=== PATIENT | female | born 1960 | race Caucasian/White ===

== ENCOUNTER 2016-08-14 16:14 | Emergency (ER) | payer SELFPAY ==
--- NOTE | 2016-08-14 16:35 | ER Document Report ---
ED Medical Screen (RME) - General Stated Complaint: POSSIBLE BURN Time seen by provider: 16:32 Mode of Arrival: Ambulatory Information source: Patient Notes: 55-year-old female presents to ED for a burn from a sleeping on a heating pad 5 nights ago. She states she and her daughter have been monitoring the burn and the daughter told her that it was getting more red so she became concerned and came to the emergency room. I have greeted and performed a rapid initial assessment of this patient. A comprehensive ED assessment and evaluation of the patient, analysis of test results and completion of medical decision making process will be conducted by an additional ED providers. TRAVEL OUTSIDE OF THE [place] IN LAST 30 DAYS: No - Related Data Allergies/Adverse Reactions: Sulfa (Sulfonamide Antibiotics) Allergy (Verified 08/14/16 16:30) Past Medical History - Social History Family history: None - Past Medical History Cardiac Medical History: Reports: Hx Hypercholesterolemia, Hx Hypertension Denies: Hx Coronary Artery Disease Pulmonary Medical History: Denies: Hx Asthma Endocrine Medical History: Reports: Hx Hypothyroidism. Denies: Hx Diabetes Mellitus Type 1, Hx Diabetes Mellitus Type 2 GI Medical History: Reports: Hx Irritable Bowel - Pt reports hx IBS, declines amoxicillin because of this. Musculoskeltal Medical History: Reports Hx Gout Skin Medical History: Reports Hx Cellulitis Past Surgical History: Reports: Hx Thyroid Surgery - thyroid out - Immunizations Immunizations up to date: Yes Hx Diphtheria, Pertussis, Tetanus Vaccination: Yes - may, Physical Exam - Vital signs Vitals: Temp Pulse Resp BP Pulse Ox 98.2 F 99 16 163/91 H 98 08/14/16 16:20 08/14/16 16:20 08/14/16 16:20 08/14/16 16:20 08/14/16 16:20 Course - Vital Signs Vital signs: Temp Pulse Resp BP Pulse Ox 98.2 F 99 16 163/91 H 98 08/14/16 16:20 08/14/16 16:20 08/14/16 16:20 08/14/16 16:20 08/14/16 16:20
--- NOTE | 2016-08-14 17:40 | ER Document Report ---
ED General - General Chief Complaint: Thermal Burn Stated Complaint: POSSIBLE BURN Time seen by provider: 17:37 Mode of Arrival: Ambulatory Notes: This is a 55-year-old female that presents today with a burn to the center upper lumbar area. She states that 5 days ago she was sleeping on a heating pad for approximately 2 hours and woke up out of sleep due to the heat. She remove the heating pad and fell back asleep. However the next day in the afternoon she scratched her back and noticed that her hand was wet. She had her daughter examine her back and was told that she had a burn. Since then patient states that the wound has grown slightly larger and more painful. Denies nausea vomiting fever or chills. TRAVEL OUTSIDE OF THE [place] IN LAST 30 DAYS: No - Related Data Allergies/Adverse Reactions: Sulfa (Sulfonamide Antibiotics) Allergy (Verified 08/14/16 16:30) Past Medical History - General Information source: Patient - Social History Smoking Status: Never Smoker Chew tobacco use (# tins/day): No Family History: Reviewed & Not Pertinent Patient has suicidal ideation: No Patient has homicidal ideation: No - Past Medical History Cardiac Medical History: Reports: Hx Hypercholesterolemia, Hx Hypertension Denies: Hx Coronary Artery Disease Pulmonary Medical History: Denies: Hx Asthma Endocrine Medical History: Reports: Hx Hypothyroidism. Denies: Hx Diabetes Mellitus Type 1, Hx Diabetes Mellitus Type 2 Renal/ Medical History: Denies: Hx Peritoneal Dialysis GI Medical History: Reports: Hx Irritable Bowel - Pt reports hx IBS, declines amoxicillin because of this. Musculoskeltal Medical History: Reports Hx Gout Skin Medical History: Reports Hx Cellulitis Past Surgical History: Reports: Hx Thyroid Surgery - thyroid out - Immunizations Immunizations up to date: Yes Hx Diphtheria, Pertussis, Tetanus Vaccination: Yes - may, Review of Systems - Review of Systems Constitutional: denies: Chills, Fever EENT: No symptoms reported Cardiovascular: No symptoms reported Respiratory: No symptoms reported Gastrointestinal: No symptoms reported Genitourinary: No symptoms reported Musculoskeletal: No symptoms reported Skin: See HPI Hematologic/Lymphatic: No symptoms reported Neurological/Psychological: No symptoms reported Physical Exam - Vital signs Vitals: Temp Pulse Resp BP Pulse Ox 98.2 F 99 16 163/91 H 98 08/14/16 16:20 08/14/16 16:20 08/14/16 16:20 08/14/16 16:20 08/14/16 16:20 - General General appearance: Appears well, Alert - HEENT Head: Normocephalic, Atraumatic Eyes: Normal Conjunctiva: Normal - Respiratory Respiratory status: No respiratory distress, Respiratory distress Breath sounds: Normal. No: Rales, Rhonchi, Stridor, Wheezing - Cardiovascular Rhythm: Regular Heart sounds: Normal auscultation - Abdominal Inspection: Normal Bowel sounds: Normal Tenderness: Nontender - Back Back: Tender - Wound edge measures 1.5 cm x 1 cm. Surrounding erythema wound measures 2 cm x 2 cm. In the center of the wound there is brown granulation tissue. No pus or purulent drainage noted. - Extremities General upper extremity: Normal inspection General lower extremity: Normal inspection - Neurological Cognition: Normal. No: Confused - Psychological Associated symptoms: Normal affect, Normal mood - Skin Skin Temperature: Warm Skin Moisture: Dry Skin Color: Normal Course - Re-evaluation Re-evalutation: 08/14/16 23:06 Patient was advised to take prescriptions as prescribed. Patient was given a prescription for Diflucan and told to fill it only if she developed symptoms of vaginal yeast infection which she states she gets every time she is put on an antibiotic. Patient was advised to follow with an convex grinder if that occurs or come to the emergency department for any concerning symptoms. Patient was advised to follow-up with primary care physician or return to the emergency department for any concerning findings. - Vital Signs Vital signs: Temp Pulse Resp BP Pulse Ox 98 F 88 16 155/89 H 98 08/14/16 17:49 08/14/16 17:49 08/14/16 17:49 08/14/16 17:49 08/14/16 17:49 Discharge - Discharge Clinical Impression: Burn Condition: Stable Disposition: HOME, SELF-CARE Instructions: Short (OM) Additional Instructions: Return to the emergency department if symptoms worsen such as drainage, increased in size of the wound, increasing pain,etc. follow-up with primary care physician as soon as possible. Prescriptions: Clindamycin HCl 300 mg PO QID #28 capsule Fluconazole [Diflucan] 150 mg PO ONCE PRN #1 tablet PRN Reason: Referrals: [facility] [Provider Group] - Follow up as needed
[2016-08-14 17:54] VITALS: BP 155/89
== END 2016-08-14 18:05 | disposition home or self-care (01) ==
LOC: ER 16:14
DX: T21.04XA Burn of unspecified degree of lower back, initial encounter (principal); X16.XXXA Contact with hot heating appliances, radiators and pipes, initial encounter; Y92.009 Unspecified place in unspecified non-institutional (private) residence as the place of occurrence of the external cause; E78.00 Pure hypercholesterolemia, unspecified; I10 Essential (primary) hypertension; E03.9 Hypothyroidism, unspecified
CPT/HCPCS: 99283

== ENCOUNTER 2016-09-19 20:51 | Emergency (ER) | payer OTHER ==
--- NOTE | 2016-09-19 21:49 | ER Document Report ---
ED Medical Screen (RME) - General Stated Complaint: LEFT FOOT PAIN Mode of Arrival: Ambulatory Information source: Patient Notes: Patient complains of a sore to her left foot for the past 6 days. Patient is uncertain what she did to her left foot. I have greeted and performed a rapid initial assessment of this patient. A comprehensive ED assessment and evaluation of the patient, analysis of test results and completion of the medical decision making process will be conducted by additional ED providers. TRAVEL OUTSIDE OF THE [place] IN LAST 30 DAYS: No - Related Data Allergies/Adverse Reactions: clindamycin Allergy (Verified 09/19/16 21:47) Sulfa (Sulfonamide Antibiotics) Allergy (Verified 09/19/16 21:47) Past Medical History - Social History Family history: None - Past Medical History Cardiac Medical History: Reports: Hx Hypercholesterolemia, Hx Hypertension Denies: Hx Coronary Artery Disease Pulmonary Medical History: Denies: Hx Asthma Endocrine Medical History: Reports: Hx Hypothyroidism. Denies: Hx Diabetes Mellitus Type 1, Hx Diabetes Mellitus Type 2 Renal/ Medical History: Denies: Hx Peritoneal Dialysis GI Medical History: Reports: Hx Irritable Bowel - Pt reports hx IBS, declines amoxicillin because of this. Musculoskeltal Medical History: Reports Hx Gout Skin Medical History: Reports Hx Cellulitis Past Surgical History: Reports: Hx Thyroid Surgery - thyroid out - Immunizations Immunizations up to date: Yes Hx Diphtheria, Pertussis, Tetanus Vaccination: Yes - may, Physical Exam - Vital signs Vitals: Temp Pulse Resp BP Pulse Ox 98.0 F 102 H 18 161/83 H 96 09/19/16 21:16 09/19/16 21:16 09/19/16 21:16 09/19/16 21:16 09/19/16 21:16 - Skin Skin irregularity: Erythema - Erythema surrounding wound to the posterior left foot. Course - Vital Signs Vital signs: Temp Pulse Resp BP Pulse Ox 98.0 F 102 H 18 161/83 H 96 09/19/16 21:16 09/19/16 21:16 09/19/16 21:16 09/19/16 21:16 09/19/16 21:16
[2016-09-19] MEDS ORDERED: CEPHALEXIN 500 MG CAPSULE PO ONE (23:47)
--- NOTE | 2016-09-19 23:50 | ER Document Report ---
ED General - General Chief Complaint: Skin Problem Stated Complaint: LEFT FOOT PAIN Mode of Arrival: Ambulatory Notes: Patient is a 5 show female presents with complaint of red sore on the back of her left heel. She initially had a scab there. Scab came off. This was several days ago. Today she started having spreading redness from the scab. No other complaints. No other concerns. No fevers. No injuries. TRAVEL OUTSIDE OF THE [place] IN LAST 30 DAYS: No - Related Data Allergies/Adverse Reactions: clindamycin Allergy (Verified 09/19/16 21:47) Sulfa (Sulfonamide Antibiotics) Allergy (Verified 09/19/16 21:47) Past Medical History - General Information source: Patient - Social History Smoking Status: Never Smoker Frequency of alcohol use: None Drug Abuse: None Family History: Reviewed & Not Pertinent - Past Medical History Cardiac Medical History: Reports: Hx Hypercholesterolemia, Hx Hypertension Denies: Hx Coronary Artery Disease Pulmonary Medical History: Denies: Hx Asthma Endocrine Medical History: Reports: Hx Hypothyroidism. Denies: Hx Diabetes Mellitus Type 1, Hx Diabetes Mellitus Type 2 Renal/ Medical History: Denies: Hx Peritoneal Dialysis GI Medical History: Reports: Hx Irritable Bowel - Pt reports hx IBS, declines amoxicillin because of this. Musculoskeltal Medical History: Reports Hx Gout Skin Medical History: Reports Hx Cellulitis Past Surgical History: Reports: Hx Thyroid Surgery - thyroid out - Immunizations Immunizations up to date: Yes Hx Diphtheria, Pertussis, Tetanus Vaccination: Yes - may, Review of Systems - Review of Systems Notes: My Normal Review Basic REVIEW OF SYSTEMS: CONSTITUTIONAL : Denies fever, chills, or sweats. Denies recent illness. GASTROINTESTINAL: Denies abdominal pain. Denies nausea, vomiting, or diarrhea. Denies constipation. Last BM: MUSCULOSKELETAL: Denies neck or back pain or joint pain or swelling. SKIN: Redness to left heel. NEUROLOGICAL: . Denies sensory or motor loss. ALL OTHER SYSTEMS REVIEWED AND NEGATIVE. Physical Exam - Vital signs Vitals: Temp Pulse Resp BP Pulse Ox 98.0 F 102 H 18 161/83 H 96 09/19/16 21:16 09/19/16 21:16 09/19/16 21:16 09/19/16 21:16 09/19/16 21:16 - Notes Notes: General Appearance: Well nourished, alert, cooperative, no acute distress, no obvious discomfort. Well-appearing. Vitals: reviewed, See vital signs table. Extremities: strength 5/5 in all extremities, good pulses in all extremities, no swelling or tenderness in the extremities, no edema. Skin: Approximately 2-3 centimeter area of circumferential erythema consistent with cellulitis of his around the area of previous scab over the posterior heel of the left foot. No swelling. No signs of abscess. Neuro: speech clear, oriented x 3, normal affect, responds appropriately to questions. Course - Vital Signs Vital signs: Temp Pulse Resp BP Pulse Ox 98.0 F 102 H 18 161/83 H 96 09/19/16 21:16 09/19/16 21:16 09/19/16 21:16 09/19/16 21:16 09/19/16 21:16 - Transfer of Care Notes: 09/19/16 23:49 Patient initially had a scab over area. No shows some surrounding erythema consistent with early cellulitis. We'll place her on Keflex. She's had clindamycin and Bactrim in the past she is allergic to Bactrim. Clindamycin makes her vomit. I informed her that if the redness continues to spread despite the Keflex and she should return to ER should reevaluate and determine different antibiotic. Patient agrees with plan and will be discharged home. Dictation of this chart was performed using voice recognition software; therefore, there may be some unintended grammatical errors. Discharge - Discharge Clinical Impression: Cellulitis Qualifiers: Site of cellulitis: extremity Site of cellulitis of extremity: lower extremity Laterality: left Qualified Code(s): L03.116 - Cellulitis of left lower limb Condition: Good Disposition: HOME, SELF-CARE Additional Instructions: Please take the antibiotic as directed. Please return to ER if you have spreading redness, fevers, or feel unwell. Please stop the antibiotic if you develop diarrhea when taking it. Please follow-up with your doctor or a doctor in 3-4 days for reevaluation. Prescriptions: Cephalexin Monohydrate [Keflex 500 mg Capsule] 500 mg PO QID #28 capsule Forms: Return to Work
[2016-09-20 05:40] VITALS: BP 146/76
== END 2016-09-20 00:55 | disposition home or self-care (01) ==
LOC: ER 20:51
DX: L03.116 Cellulitis of left lower limb (principal); I10 Essential (primary) hypertension; Z88.1 Allergy status to other antibiotic agents; Z88.2 Allergy status to sulfonamides
CPT/HCPCS: 99283

== ENCOUNTER → 2016-10-10 | Outpatient (CLI) | payer OTHER | LOC: WI 10:14 | PROVIDERS: ATTEND Family Medicine | DX: Z12.31 Encounter for screening mammogram for malignant neoplasm of breast (principal) | CPT/HCPCS: 77067; G0202 ==

== ENCOUNTER → 2017-04-16 | Outpatient (CLI) | payer OTHER ==
[2017-04-16 10:36] LABS: ALANINE AMINOTRANSFERASE 26 U/L (9-52); ALBUMIN 4.3 g/dL (3.5-5.0); ALKALINE PHOSPHATASE 79 U/L (38-126); ANION GAP 12 (5-19); ASPARTATE AMINO TRANSFERASE 16 U/L (14-36); BILIRUBIN,DIRECT 0.3 mg/dL (0.0-0.4); BILIRUBIN,TOTAL 0.6 mg/dL (0.2-1.3); BLOOD UREA NITROGEN 14 mg/dL (7-20); CALCIUM 9.4 mg/dL (8.4-10.2); CARBON DIOXIDE 31 mmol/L (22-30); CHLORIDE 98 mmol/L (98-107); CHOLESTEROL 208.94 mg/dL (0-200); CREATININE RESULT 0.73 mg/dL (0.52-1.25); Direct HDL 45 mg/dL (>40); GLUCOSE 111 mg/dL (75-110); MAGNESIUM 1.9 mg/dL (1.6-2.3); POTASSIUM 4.2 mmol/L (3.6-5.0); SODIUM 140.9 mmol/L (137-145); TOTAL PROTEIN 6.5 g/dL (6.3-8.2); TRIGLYCERIDES 194 mg/dL (<150); URIC ACID 5.2 mg/dL (2.5-7.5)
[2017-04-16 10:48] LABS: DIRECT LDL 124 mg/dL (<100)
[2017-04-16 11:46] LABS: VLDL CHOLESTEROL 38.8 mg/dL (10-31)
== END ==
LOC: CCC 09:51
DX: E78.5 Hyperlipidemia, unspecified (principal); M05.60 Rheumatoid arthritis of unspecified site with involvement of other organs and systems; G90.09 Other idiopathic peripheral autonomic neuropathy
CPT/HCPCS: 36415; 80053; 80061; 82607; 82746; 83735; 84443; 84550

== ENCOUNTER 2017-07-13 12:14 | Emergency (ER) | payer OTHER ==
[2017-07-13] MEDS ORDERED: NORMAL SALINE 1000 ML 1,000 ML IV ONE (12:59)
[2017-07-13] MEDS ORDERED: KETOROLAC TROMETHAMINE INJ/PF 30 MG/1 ML SDV IV ONE (12:59)
[2017-07-13] MEDS ORDERED: ONDANSETRON HCL INJ/PF 4 MG/2 ML SDV IV ONE (12:59)
--- NOTE | 2017-07-13 13:00 | ER Document Report ---
ED Medical Screen (RME) - General Chief Complaint: Abdominal Pain Stated Complaint: STOMACH PAIN Time Seen by Provider: 07/13/17 12:58 Notes: Patient states for 3 days she has had right upper quadrant abdominal pain with nausea and decreased appetite. TRAVEL OUTSIDE OF THE [place] IN LAST 30 DAYS: No - Related Data Allergies/Adverse Reactions: clindamycin Allergy (Verified 07/13/17 12:17) epinephrine Allergy (Verified 07/13/17 12:17) Sulfa (Sulfonamide Antibiotics) Allergy (Verified 07/13/17 12:17) Home Medications: Current Home Medications Lorazepam [Ativan 0.5 mg Tablet] 1 - 2 tab PO Q6H PRN 07/13/17 [History] [place]-3 Fatty Acids/Fish Oil [[place] 3 Fish Oil Softgel] 1 cap PO DAILY 07/13/17 [History] Spironolactone 1 tab PO QAM 07/13/17 [History] Past Medical History - Social History Frequency of alcohol use: None Drug Abuse: None Family history: None - Past Medical History Cardiac Medical History: Reports: Hx Hypercholesterolemia, Hx Hypertension Denies: Hx Coronary Artery Disease Pulmonary Medical History: Denies: Hx Asthma Endocrine Medical History: Reports: Hx Hypothyroidism. Denies: Hx Diabetes Mellitus Type 1, Hx Diabetes Mellitus Type 2 Renal/ Medical History: Denies: Hx Peritoneal Dialysis GI Medical History: Reports: Hx Irritable Bowel - Pt reports hx IBS, declines amoxicillin because of this. Musculoskeltal Medical History: Reports Hx Gout Skin Medical History: Reports Hx Cellulitis Past Surgical History: Reports: Hx Thyroid Surgery - thyroid out - Immunizations Immunizations up to date: Yes Hx Diphtheria, Pertussis, Tetanus Vaccination: Yes - may, Physical Exam - Vital signs Vitals: Temp Pulse Resp BP Pulse Ox 98.2 F 82 14 139/81 H 96 07/13/17 12:19 07/13/17 12:19 07/13/17 12:19 07/13/17 12:19 07/13/17 12:19 Course - Vital Signs Vital signs: Temp Pulse Resp BP Pulse Ox 98.2 F 82 14 139/81 H 96 07/13/17 12:19 07/13/17 12:19 07/13/17 12:19 07/13/17 12:19 07/13/17 12:19
[2017-07-13 13:44] LABS: ABSOLUTE BASOPHILS # (AUTO) 0.1 10^3/uL (0.0-0.2); ABSOLUTE EOSINOPHILS # (AUTO) 0.1 10^3/uL (0.0-0.6); ABSOLUTE LYMPHOCYTES (AUTO) 2.1 10^3/uL (0.5-4.7); ABSOLUTE MONOCYTES (AUTO) 0.3 10^3/uL (0.1-1.4); ABSOLUTE NEUT (AUTO) 4.6 10^3/uL (1.7-8.2); BASOPHILS % (AUTO) 1.4 % (0-2); EOSINOPHILS % (AUTO) 0.8 % (0-6); HEMOGLOBIN 14.7 g/dL (12.0-15.5); HGB HCT DIFFERENCE 1.1; LYMPHOCYTES % (AUTO) 29.2 % (13-45); MEAN CORPUSCULAR HEMOGLOBIN 31.1 pg (27.0-33.4); MEAN CORPUSCULAR HGB CONC 34.1 g/dL (32.0-36.0); MEAN CORPUSCULAR VOLUME 91 fl (80-97); MONOCYTES % (AUTO) 4.6 % (3-13); RED BLOOD COUNT 4.72 10^6/uL (3.72-5.28); RED CELL DISTRIBUTION WIDTH 14.2 % (11.5-14.0); WHITE BLOOD COUNT 7.2 10^3/uL (4.0-10.5)
[2017-07-13 13:48] LABS: APPEARANCE,URINE CLEAR; BILIRUBIN,URINE NEGATIVE (NEGATIVE); GLUCOSE, URINE NEGATIVE (NEGATIVE); KETONES,URINE NEGATIVE (NEGATIVE); LEUKOCYTE ESTERASE,URINE NEGATIVE (NEGATIVE); NITRITE,URINE NEGATIVE (NEGATIVE); PROTEIN,URINE NEGATIVE (NEGATIVE); URINE SPECIFIC GRAVITY 1.014; UROBILINOGEN,URINE NEGATIVE mg/dL (<2.0)
[2017-07-13 14:02] LABS: ALANINE AMINOTRANSFERASE 31 U/L (9-52); ALBUMIN 4.6 g/dL (3.5-5.0); ALKALINE PHOSPHATASE 80 U/L (38-126); ANION GAP 14 (5-19); ASPARTATE AMINO TRANSFERASE 23 U/L (14-36); BILIRUBIN,DIRECT 0.2 mg/dL (0.0-0.4); BILIRUBIN,TOTAL 0.7 mg/dL (0.2-1.3); BLOOD UREA NITROGEN 14 mg/dL (7-20); CALCIUM 9.7 mg/dL (8.4-10.2); CARBON DIOXIDE 31 mmol/L (22-30); CHLORIDE 95 mmol/L (98-107); CREATININE RESULT 0.75 mg/dL (0.52-1.25); GLUCOSE 112 mg/dL (75-110); LIPASE 43.8 U/L (23-300); POTASSIUM 3.6 mmol/L (3.6-5.0); TOTAL PROTEIN 7.6 g/dL (6.3-8.2)
--- NOTE | 2017-07-13 15:39 | RADIOLOGY REPORT (SQ) ---
EXAM DESCRIPTION: U/S ABDOMEN LIMITED W/O DOP COMPLETED DATE/TIME: 07/13/2017 3:18 pm REASON FOR STUDY: ruq pain COMPARISON: 09/07/2015. TECHNIQUE: Dynamic and static grayscale images acquired of the abdomen and recorded on PACS. Additio nal selected color Doppler and spectral images recorded. LIMITATIONS: None. FINDINGS: PANCREAS: No masses. No peripancreatic edema or fluid collections. LIVER: Echotexture is coarse with increased echogenicity consistent with fatty infiltration. LIVER VASCULATURE: Normal directional flow of the main portal vein and hepatic veins. GALLBLADDER: No stones. Normal wall thickness. No pericholecystic fluid. ULTRASOUND-DETECTED MILLAN'S SIGN: Negative. INTRAHEPATIC DUCTS AND COMMON DUCT: CBD and intrahepatic ducts normal caliber. No filling defects. INFERIOR VENA CAVA: Normal flow. AORTA: No aneurysm. RIGHT KIDNEY: Normal size. Normal echogenicity. No solid or suspicious masses. No hydronephrosis. No calcifications. PERITONEAL AND RIGHT PLEURAL SPACE: No ascites or effusions. OTHER: No other significant finding. IMPRESSION: FATTY INFILTRATION OF THE LIVER. OTHERWISE NORMAL RIGHT UPPER QUADRANT ULTRASOUND. TECHNICAL DOCUMENTATION: JOB ID: [id number] [employer]- All Rights Reserved
[2017-07-13] MEDS ORDERED: TRAMADOL HCL 50 MG TABLET PO ONE (16:24)
--- NOTE | 2017-07-13 17:42 | ER Document Report ---
ED General - General Chief Complaint: Abdominal Pain Stated Complaint: STOMACH PAIN Time Seen by Provider: 07/13/17 12:58 Information source: Patient TRAVEL OUTSIDE OF THE [place] IN LAST 30 DAYS: No - HPI Patient complains to provider of: ruq pain Onset: This afternoon Onset/Duration: Gradual Severity: Moderate Associated symptoms: None Exacerbated by: Denies Relieved by: Denies Similar symptoms previously: No Recently seen / treated by doctor: No - Related Data Allergies/Adverse Reactions: clindamycin Allergy (Verified 07/13/17 12:17) epinephrine Allergy (Verified 07/13/17 12:17) Sulfa (Sulfonamide Antibiotics) Allergy (Verified 07/13/17 12:17) Home Medications: Current Home Medications Lorazepam [Ativan 0.5 mg Tablet] 1 - 2 tab PO Q6H PRN 07/13/17 [History] [place]-3 Fatty Acids/Fish Oil [[place] 3 Fish Oil Softgel] 1 cap PO DAILY 07/13/17 [History] Spironolactone 1 tab PO QAM 07/13/17 [History] Past Medical History - Social History Smoking Status: Former Smoker Frequency of alcohol use: None Drug Abuse: None Family History: Reviewed & Not Pertinent Patient has suicidal ideation: No Patient has homicidal ideation: No - Past Medical History Cardiac Medical History: Reports: Hx Hypercholesterolemia, Hx Hypertension Denies: Hx Coronary Artery Disease Pulmonary Medical History: Denies: Hx Asthma Endocrine Medical History: Reports: Hx Hypothyroidism. Denies: Hx Diabetes Mellitus Type 1, Hx Diabetes Mellitus Type 2 Renal/ Medical History: Denies: Hx Peritoneal Dialysis GI Medical History: Reports: Hx Irritable Bowel - Pt reports hx IBS, declines amoxicillin because of this. Musculoskeltal Medical History: Reports Hx Gout Skin Medical History: Reports Hx Cellulitis Past Surgical History: Reports: Hx Thyroid Surgery - thyroid out - Immunizations Immunizations up to date: Yes Hx Diphtheria, Pertussis, Tetanus Vaccination: Yes - may, Physical Exam - Vital signs Vitals: Temp Pulse Resp BP Pulse Ox 98.2 F 82 14 139/81 H 96 07/13/17 12:19 07/13/17 12:19 07/13/17 12:19 07/13/17 12:19 07/13/17 12:19 - Notes Notes: PHYSICAL EXAMINATION: GENERAL: Well-appearing, well-nourished and in no acute distress. HEAD: Atraumatic, normocephalic. EYES: Pupils equal round and reactive to light, extraocular movements intact, conjunctiva are normal. ENT: Nares patent, oropharynx clear without exudates. Moist mucous membranes. NECK: Normal range of motion, supple without lymphadenopathy LUNGS: Breath sounds clear to auscultation bilaterally and equal. No wheezes rales or rhonchi. HEART: Regular rate and rhythm without murmurs ABDOMEN: Soft, mild tenderness right upper quadrant, nondistended abdomen. No guarding, no rebound. No masses appreciated. Female : deferred Musculoskeletal: Normal range of motion, no pitting or edema. No cyanosis. NEUROLOGICAL: Cranial nerves grossly intact. Normal speech, normal gait. Normal sensory, motor exams PSYCH: Normal mood, normal affect. SKIN: Warm, Dry, normal turgor, no rashes or lesions noted. PHYSICAL EXAMINATION: Course - Vital Signs Vital signs: Temp Pulse Resp BP Pulse Ox 98.4 F 79 14 116/64 97 07/13/17 18:09 07/13/17 18:09 07/13/17 12:19 07/13/17 18:09 07/13/17 18:09 - Laboratory Result Diagrams: 07/13/17 13:35 07/13/17 13:35 Laboratory results interpreted by me: 07/13/17 07/13/17 07/13/17 13:25 13:35 13:35 RDW 14.2 H Chloride 95 L Carbon Dioxide 31 H Glucose 112 H Urine Ascorbic Acid 40 H - Diagnostic Test Radiology results interpreted by me: 07/15/17 22:05 no acute on US RUQ Discharge - Discharge Clinical Impression: RUQ abdominal pain Condition: Stable Disposition: HOME, SELF-CARE Instructions: Abdominal Pain ([facility]) Referrals: RAJI LOUIS MD [Primary Care Provider] - Follow up in 3-5 days (Return to the emergency department if you have fevers intractable vomiting increased pain or any other concerns.)
[2017-07-13 18:11] VITALS: BP 116/64
== END 2017-07-13 18:11 | disposition home or self-care (01) ==
LOC: ER 12:14
DX: R10.11 Right upper quadrant pain (principal); I10 Essential (primary) hypertension; Z88.1 Allergy status to other antibiotic agents; Z88.2 Allergy status to sulfonamides; Z88.8 Allergy status to other drugs, medicaments and biological substances; Z87.891 Personal history of nicotine dependence; Z87.19 Personal history of other diseases of the digestive system
CPT/HCPCS: 99284; 96361; 96374; 96375; 36415; 83690; 85025; 80053; 81001; 76705; J1885; J2405; J7030

== ENCOUNTER 2017-09-29 07:06 | Emergency (ER) | payer OTHER ==
--- NOTE | 2017-09-29 07:39 | ER Document Report ---
ED General - General Chief Complaint: Skin Problem Stated Complaint: SKIN PROBLEM Time Seen by Provider: 09/29/17 07:26 Mode of Arrival: Ambulatory Information source: Patient Notes: 56-year-old female presents with multiple sores all over the face pain and swelling of the finger. Patient notes that she had a mole on the back of her neck that she scratched that and then to become irritated, and she is noted sores on her face, patient notes small amount of drainage from them. Patient notes the finger has been swollen as well. She denies any fevers or chills denies any nausea vomiting or diarrhea patient has been soaking the digit and epsom salt TRAVEL OUTSIDE OF THE [place] IN LAST 30 DAYS: No - HPI Onset: Last week Onset/Duration: Persistent Quality of pain: Achy Severity: Mild Pain Level: 1 Associated symptoms: Other Exacerbated by: Denies Relieved by: Denies Similar symptoms previously: No Recently seen / treated by doctor: No - Related Data Allergies/Adverse Reactions: clindamycin Allergy (Verified 07/13/17 12:17) epinephrine Allergy (Verified 07/13/17 12:17) Sulfa (Sulfonamide Antibiotics) Allergy (Verified 07/13/17 12:17) Past Medical History - Social History Smoking Status: Never Smoker Cigarette use (# per day): No Chew tobacco use (# tins/day): No Smoking Education Provided: No Family History: Reviewed & Not Pertinent - Past Medical History Cardiac Medical History: Reports: Hx Hypercholesterolemia, Hx Hypertension Denies: Hx Coronary Artery Disease Pulmonary Medical History: Denies: Hx Asthma Endocrine Medical History: Reports: Hx Hypothyroidism. Denies: Hx Diabetes Mellitus Type 1, Hx Diabetes Mellitus Type 2 Renal/ Medical History: Denies: Hx Peritoneal Dialysis GI Medical History: Reports: Hx Irritable Bowel - Pt reports hx IBS, declines amoxicillin because of this. Musculoskeltal Medical History: Reports Hx Gout Skin Medical History: Reports Hx Cellulitis Past Surgical History: Reports: Hx Thyroid Surgery - thyroid out - Immunizations Immunizations up to date: Yes Hx Diphtheria, Pertussis, Tetanus Vaccination: Yes - may, Review of Systems - Review of Systems Notes: REVIEW OF SYSTEMS: CONSTITUTIONAL : Denies fever, chills, or sweats. Denies recent illness. EENT: Denies eye, ear, throat, or mouth pain or symptoms. Denies nasal or sinus congestion or discharge. Denies throat, tongue, or mouth swelling or difficulty swallowing. CARDIOVASCULAR: Denies chest pain. Denies palpitations or racing or irregular heart beat. Denies ankle edema. RESPIRATORY: Denies cough, cold, or chest congestion. Denies shortness of breath, difficulty breathing, or wheezing. GASTROINTESTINAL: Denies abdominal pain or distention. Denies nausea, vomiting , or diarrhea. Denies blood in vomitus, stools, or per rectum. Denies black, tarry stools. Denies constipation. GENITOURINARY: Denies difficulty urinating, painful urination, burning, frequency, blood in urine, or discharge. FEMALE GENITOURINARY: Denies vaginal bleeding, heavy or abnormal periods, irregular periods. Denies vaginal discharge or odor. MUSCULOSKELETAL: Denies back or neck pain or stiffness. Denies joint pain or swelling. SKIN: Admits to skin rashes and sores HEMATOLOGIC : Denies easy bruising or bleeding. LYMPHATIC: Denies swollen, enlarged glands. NEUROLOGICAL: Denies confusion or altered mental status. Denies passing out or loss of consciousness. Denies dizziness or lightheadedness. Denies headache. Denies weakness or paralysis or loss of use of either side. Denies problems with gait or speech. Denies sensory loss, numbness, or tingling. Denies seizures. PSYCHIATRIC: Denies anxiety or stress. Denies depression, suicidal ideation, or homicidal ideation. ALL OTHER SYSTEMS REVIEWED AND NEGATIVE. PHYSICAL EXAMINATION: GENERAL: Well-appearing, well-nourished and in no acute distress. HEAD: Atraumatic, normocephalic. EYES: Pupils equal round and reactive to light, extraocular movements intact, conjunctiva are normal. ENT: Nares patent, oropharynx clear without exudates. Moist mucous membranes. NECK: Normal range of motion, supple without lymphadenopathy LUNGS: Breath sounds clear to auscultation bilaterally and equal. No wheezes rales or rhonchi. HEART: Regular rate and rhythm without murmurs ABDOMEN: Soft, nontender, nondistended abdomen. No guarding, no rebound. No masses appreciated. Female : deferred Musculoskeletal: Normal range of motion, no pitting or edema. No cyanosis. NEUROLOGICAL: Cranial nerves grossly intact. Normal speech, normal gait. Normal sensory, motor exams PSYCH: Normal mood, normal affect. SKIN: Paronychia second digit right hand, superficial ulcerations forehead left upper eyelid left cervical region Dictation was performed using [employer] voice recognition software Physical Exam - Vital signs Vitals: Temp Pulse Resp BP Pulse Ox 98.4 F 101 H 16 144/85 H 98 09/29/17 07:18 18 07:18 09/29/17 07:18 09/29/17 07:18 09/29/17 07:18 Course - Re-evaluation Re-evalutation: 09/29/17 11:25 Patient has multiple sores around her face, this is probably secondary to an MRSA colonization, patient unfortunately has allergy to sulfa. Her allergy to clindamycin is just an upset stomach, she states she is willing to take the medication since she has not had any severe reaction. I did offer to incise and drain her paronychia patient states she would prefer to wait, I have explained that in reality it probably will get worse and can cause serious infection patient states she understands After performing a Medical Screening Examination, I estimate there is LOW risk for OPEN FRACTURE, COMPARTMENT SYNDROME, TENDON RUPTURE, ACUTE NEUROVASCULAR INJURY, or RETAINED FOREIGN BODY, thus I consider the discharge disposition reasonable. Also, there is no evidence or peritonitis, sepsis, or toxicity. I have reevaluated this patient multiple times and no significant life threatening changes are noted. The patient and I have discussed the diagnosis and risks, and we agree with discharging home with close follow-up with the understanding that symptoms and presentations can change. We also discussed returning to the Emergency Department immediately if new or worsening symptoms occur. We have discussed the symptoms which are most concerning (e.g., changing or worsening pain, fever, numbness, weakness, cool or painful digits) that necessitate immediate return. - Vital Signs Vital signs: Temp Pulse Resp BP Pulse Ox 98.5 F 89 16 128/80 H 95 09/29/17 08:02 09/29/17 08:02 09/29/17 08:02 09/29/17 08:02 09/29/17 08:02 Discharge - Discharge Clinical Impression: Skin infection, Paronychia Condition: Stable Disposition: HOME, SELF-CARE Instructions: MRSA Cellulitis ([facility]) Prescriptions: Clindamycin HCl 300 mg PO Q6 #40 capsule Fluconazole [Diflucan] 150 mg PO ONCE PRN #2 tablet PRN Reason: Referrals: BRYAN LOUIS MD [Primary Care Provider] - Follow up tomorrow
[2017-09-29 08:07] VITALS: BP 128/80
== END 2017-09-29 08:33 | disposition home or self-care (01) ==
LOC: ER 07:06
DX: L08.9 Local infection of the skin and subcutaneous tissue, unspecified (principal); L03.011 Cellulitis of right finger; I10 Essential (primary) hypertension; Z88.1 Allergy status to other antibiotic agents; Z88.2 Allergy status to sulfonamides; Z88.8 Allergy status to other drugs, medicaments and biological substances
CPT/HCPCS: 99283

== ENCOUNTER → 2017-11-13 | Outpatient (CLI) | payer OTHER ==
[2017-11-13 11:20] LABS: CHOLESTEROL 185.98 mg/dL (0-200); POTASSIUM 4.4 mmol/L (3.6-5.0); TRIGLYCERIDES 257 mg/dL (<150); URIC ACID 5.9 mg/dL (2.5-7.5)
[2017-11-13 11:32] LABS: DIRECT LDL 94 mg/dL (<100)
[2017-11-13 11:34] LABS: VLDL CHOLESTEROL 51.4 mg/dL (10-31)
[2017-11-13 14:56] LABS: ALANINE AMINOTRANSFERASE 24 U/L (9-52); ALBUMIN 3.8 g/dL (3.5-5.0); ALKALINE PHOSPHATASE 70 U/L (38-126); ANION GAP 9 (5-19); ASPARTATE AMINO TRANSFERASE 19 U/L (14-36); BILIRUBIN,DIRECT 0.3 mg/dL (0.0-0.4); BILIRUBIN,TOTAL 0.7 mg/dL (0.2-1.3); BLOOD UREA NITROGEN 16 mg/dL (7-20); CALCIUM 9.3 mg/dL (8.4-10.2); CARBON DIOXIDE 34 mmol/L (22-30); CHLORIDE 97 mmol/L (98-107); GLUCOSE 114 mg/dL (75-110); SODIUM 139.9 mmol/L (137-145); TOTAL PROTEIN 6.4 g/dL (6.3-8.2)
[2017-11-13 15:01] LABS: POTASSIUM 4.4 mmol/L (3.6-5.0)
== END ==
LOC: CCC 10:26
DX: E79.0 Hyperuricemia without signs of inflammatory arthritis and tophaceous disease (principal); E78.5 Hyperlipidemia, unspecified; R25.2 Cramp and spasm
CPT/HCPCS: 36415; 80048; 80061; 80076; 83036; 83735; 84132; 84436; 84443; 84550

== ENCOUNTER → 2018-01-18 | Outpatient (CLI) | payer OTHER ==
--- NOTE | 2018-01-18 15:24 | WOMENS IMAGING REPORT ---
EXAM DESCRIPTION: U/S PELVIS NON-OB COMPLETED DATE/TIME: 01/18/2018 2:32 pm REASON FOR STUDY: ENDOMETRIOSIS; N80.9 N80.9 ENDOMETRIOSIS, UNSPECIFIED COMPARISON: None. TECHNIQUE: Dynamic and static grayscale images acquired of the pelvis via transabdominal approach an d recorded on PACS. Additional selected color Doppler and spectral images recorded. LIMITATIONS: None. FINDINGS: UTERUS: Contour normal. No mass. ENDOMETRIAL STRIPE: No focal or generalized thickening. No masses. CERVIX: No nabothian cysts. RIGHT OVARY AND DOPPLER: Ovary not visualized. LEFT OVARY AND DOPPLER: Normal size. No worrisome masses. Normal arterial vascular flow without evide nce for torsion. FREE FLUID: None noted. OTHER: No other significant finding. MEASUREMENTS: UTERUS: 4.1 x 5.4 x 8.3 cm. ENDOMETRIAL STRIPE: 4.9 mm. RIGHT OVARY: Not visualized. LEFT OVARY: 1.7 x 2.0 x 2.1 cm. IMPRESSION: RIGHT OVARY NOT VISUALIZED. OTHERWISE NORMAL PELVIC ULTRASOUND BY TRANSABDOMINAL TECHNI QUE. TECHNICAL DOCUMENTATION: JOB ID: [id number]- All Rights Reserved Reading location - IP/workstation name: [email or web address]
== END ==
LOC: WI 13:34
DX: N80.9 Endometriosis, unspecified (principal)
CPT/HCPCS: 76856

== ENCOUNTER 2018-02-25 22:24 | Emergency (ER) | payer OTHER ==
--- NOTE | 2018-02-25 23:12 | ER Document Report ---
ED GI/ - General Mode of Arrival: Ambulatory Information source: Patient TRAVEL OUTSIDE OF THE [place] IN LAST 30 DAYS: No <JAS CRUZ - Last Filed: 02/26/18 02:30> <HI ROSA - Last Filed: 02/26/18 02:38> - General Chief Complaint: Flank Pain Stated Complaint: LEFT FLANK PAIN Time Seen by Provider: 02/25/18 22:58 Notes: 57 y.o female with fibromyalgia and sjogren's presents to the ED with LT flank pain of onset 3 days ago. Pt reports that she initially felt as if she pulled a muscle in her back but then her pain started to feel like previous kidney infections, and the pain began to radiate around her side today. Pt describes the pain a deep, dull pain. Pt also reports urinary frequency, urinary urgency with barely being able to hold her urine until she gets to the restroom and some nausea yesterday. Pt denies any burning, hematuria, diarrhea or any known fever. (JAS CRUZ) - Related Data Allergies/Adverse Reactions: clindamycin Allergy (Verified 07/13/17 12:17) epinephrine Allergy (Verified 07/13/17 12:17) Sulfa (Sulfonamide Antibiotics) Allergy (Verified 07/13/17 12:17) Past Medical History - General Information source: Patient - Social History Smoking Status: Never Smoker Chew tobacco use (# tins/day): No Frequency of alcohol use: None Drug Abuse: None Family History: Reviewed & Not Pertinent - Past Medical History Cardiac Medical History: Reports: Hx Hypercholesterolemia, Hx Hypertension Endocrine Medical History: Reports: Hx Hypothyroidism Renal/ Medical History: Denies: Hx Peritoneal Dialysis GI Medical History: Reports: Hx Irritable Bowel - Pt reports hx IBS, declines amoxicillin because of this. Musculoskeletal Medical History: Reports Hx Fibromyalgia, Reports Other - sjogren's Skin Medical History: Reports Hx Cellulitis Past Surgical History: Reports: Hx Thyroid Surgery - thyroid out - Immunizations Immunizations up to date: Yes Hx Diphtheria, Pertussis, Tetanus Vaccination: Yes - may, <JAS CRUZ - Last Filed: 02/26/18 02:30> Review of Systems - Review of Systems Constitutional: See HPI. denies: Fever EENT: No symptoms reported Cardiovascular: No symptoms reported Respiratory: No symptoms reported Gastrointestinal: See HPI, Diarrhea, Nausea Genitourinary: See HPI, Frequency, Flank pain, Urgency. denies: Burning, Hematuria Female Genitourinary: No symptoms reported Musculoskeletal: No symptoms reported Skin: No symptoms reported Hematologic/Lymphatic: No symptoms reported Neurological/Psychological: No symptoms reported -: Yes All other systems reviewed and negative <JAS CRUZ - Last Filed: 02/26/18 02:30> - Vital signs Vitals: Temp Pulse Resp BP Pulse Ox 98.3 F 102 H 18 160/86 H 99 02/25/18 22:29 02/25/18 22:29 02/25/18 22:29 02/25/18 22:29 02/25/18 22:29 - Notes Notes: PHYSICAL EXAM GENERAL: Alert, interacts well. No acute distress. HEAD: Normocephalic, atraumatic. EYES: Pupils equal, round, and reactive to light. Extraocular movements intact. ENT: Oral mucosa moist, tongue midline. NECK: Full range of motion. Supple. Trachea midline. LUNGS: Clear to auscultation bilaterally, no wheezes, rales, or rhonchi. No respiratory distress. HEART: Regular rate and rhythm. No murmurs, gallops, or rubs. ABDOMEN: Soft, non-tender. Non-distended. Bowel sounds present in all 4 quadrants. No guarding, rebound, or rigidity. BACK: No CVA tenderness to percussion. No vesicular rash. EXTREMITIES: Moves all 4 extremities spontaneously. Radial and dorsalis pedis pulses 2/4 bilaterally. No cyanosis. NEUROLOGICAL: Alert and oriented x3. Normal speech. PSYCH: Normal affect, normal mood. SKIN: Warm, dry, normal turgor. No vesicular rash. (JAS CRUZ) Course - Laboratory Result Diagrams: 02/25/18 23:34 02/25/18 23:34 <JAS CRUZ - Last Filed: 02/26/18 02:30> - Laboratory Result Diagrams: 02/25/18 23:34 02/25/18 23:34 <HI ROSA - Last Filed: 02/26/18 02:38> - Re-evaluation Re-evalutation: 02/26/18 01:37 CBC unremarkable, CMP shows slightly low potassium at 3.4 otherwise unremarkable , urinalysis unremarkable without any evidence of blood or infection. Given her symptoms which are suspicious for urinary tract infection this will be sent for culture anyway. Antibiotics will not be started at this time. Discussed with patient that at this time I do not see any cause for her symptoms however her symptoms are not suggestive of intra-abdominal infection, pneumonia, heart attack or any other high-risk diagnoses. I did discuss with her that I do not have an exact diagnosis and that if she would like we could do a chest x-ray to rule out a left lower lobe pneumonia despite her lack of shortness of breath or cough or chest pain. At this time she would prefer to be discharged home, follow up with her primary care physician and return should she develop any new symptoms. (HI ROSA) - Vital Signs Vital signs: Temp Pulse Resp BP Pulse Ox 97.5 F 67 18 126/61 H 96 02/26/18 01:56 02/26/18 01:56 02/26/18 01:56 02/26/18 01:56 02/26/18 01:56 - Laboratory Laboratory results interpreted by me: 02/25/18 02/25/18 02/25/18 23:34 23:34 23:34 RDW 14.4 H Potassium 3.4 L Glucose 146 H Urine Ascorbic Acid 20 H Discharge <JAS CRUZ - Last Filed: 02/26/18 02:30> <HI ROSA - Last Filed: 02/26/18 02:38> - Discharge Clinical Impression: Acute left flank pain Condition: Stable Disposition: HOME, SELF-CARE Additional Instructions: Today there is no sign of blood in your urine or infection. Your white blood cell count was normal. I do not know exactly what is causing your pain. If you develop worsening pain, fevers, cough, shortness of breath or any new or concerning symptoms please return to the emergency department immediately. Referrals: [facility] [NO LOCAL MD] - Follow up as needed Scribe Attestation: 02/26/18 02:38 I personally performed the services described in the documentation, reviewed and edited the documentation which was dictated to the scribe in my presence, and it accurately records my words and actions. (HI ROSA) Scribe Documentation - Scribe Written by Tisha:: Tisha Souza 02/25/18 1459 acting as scribe for :: Neel <JAS CRUZ - Last Filed: 02/26/18 02:30>
[2018-02-25 23:44] LABS: ABSOLUTE EOSINOPHILS # (AUTO) 0.2 10^3/uL (0.0-0.6); ABSOLUTE LYMPHOCYTES (AUTO) 2.7 10^3/uL (0.5-4.7); ABSOLUTE MONOCYTES (AUTO) 0.4 10^3/uL (0.1-1.4); ABSOLUTE NEUT (AUTO) 4.7 10^3/uL (1.7-8.2); BASOPHILS % (AUTO) 0.3 % (0-2); EOSINOPHILS % (AUTO) 2.2 % (0-6); HEMATOCRIT 41.3 % (36.0-47.0); LYMPHOCYTES % (AUTO) 34.2 % (13-45); MEAN CORPUSCULAR HEMOGLOBIN 30.6 pg (27.0-33.4); MEAN CORPUSCULAR HGB CONC 33.8 g/dL (32.0-36.0); MEAN CORPUSCULAR VOLUME 91 fl (80-97); MONOCYTES % (AUTO) 4.4 % (3-13); PLATELET COUNT 237 10^3/uL (150-450); RED BLOOD COUNT 4.56 10^6/uL (3.72-5.28); RED CELL DISTRIBUTION WIDTH 14.4 % (11.5-14.0); SEGMENTED NEUTROPHILS % (AUTO) 58.9 % (42-78); TOTAL CELLS COUNTED % (AUTO) 100 %
[2018-02-25 23:56] LABS: ALANINE AMINOTRANSFERASE 30 U/L (9-52); ALBUMIN 4.4 g/dL (3.5-5.0); ALKALINE PHOSPHATASE 72 U/L (38-126); ANION GAP 13 (5-19); ASPARTATE AMINO TRANSFERASE 20 U/L (14-36); BILIRUBIN,DIRECT 0.2 mg/dL (0.0-0.4); BILIRUBIN,TOTAL 0.5 mg/dL (0.2-1.3); BLOOD UREA NITROGEN 17 mg/dL (7-20); CALCIUM 9.8 mg/dL (8.4-10.2); CARBON DIOXIDE 29 mmol/L (22-30); CHLORIDE 98 mmol/L (98-107); GLUCOSE 146 mg/dL (75-110); POTASSIUM 3.4 mmol/L (3.6-5.0); SODIUM 140.3 mmol/L (137-145); TOTAL PROTEIN 7.3 g/dL (6.3-8.2)
[2018-02-26 00:27] LABS: APPEARANCE,URINE CLEAR; BILIRUBIN,URINE NEGATIVE (NEGATIVE); COLOR,URINE YELLOW; GLUCOSE, URINE NEGATIVE (NEGATIVE); KETONES,URINE NEGATIVE (NEGATIVE); LEUKOCYTE ESTERASE,URINE NEGATIVE (NEGATIVE); NITRITE,URINE NEGATIVE (NEGATIVE); PROTEIN,URINE NEGATIVE (NEGATIVE); URINE SPECIFIC GRAVITY 1.014; UROBILINOGEN,URINE NEGATIVE mg/dL (<2.0)
[2018-02-26 01:59] VITALS: BP 126/61
== END 2018-02-26 01:59 | disposition home or self-care (01) ==
LOC: ER 22:24
DX: R10.9 Unspecified abdominal pain (principal); R35.0 Frequency of micturition; R39.15 Urgency of urination; R11.0 Nausea; Z87.440 Personal history of urinary (tract) infections; Z88.1 Allergy status to other antibiotic agents; Z88.8 Allergy status to other drugs, medicaments and biological substances; Z88.2 Allergy status to sulfonamides
CPT/HCPCS: 36415; 80053; 81001; 85025; 87086; 99284

== ENCOUNTER → 2018-05-26 | Outpatient (CLI) | payer OTHER ==
[2018-05-26 10:13] LABS: ABSOLUTE EOSINOPHILS # (AUTO) 0.1 10^3/uL (0.0-0.6); ABSOLUTE LYMPHOCYTES (AUTO) 2.3 10^3/uL (0.5-4.7); ABSOLUTE MONOCYTES (AUTO) 0.4 10^3/uL (0.1-1.4); ABSOLUTE NEUT (AUTO) 4.1 10^3/uL (1.7-8.2); BASOPHILS % (AUTO) 0.5 % (0-2); EOSINOPHILS % (AUTO) 1.5 % (0-6); HEMOGLOBIN 14.4 g/dL (12.0-15.5); LYMPHOCYTES % (AUTO) 33.1 % (13-45); MEAN CORPUSCULAR HEMOGLOBIN 30.6 pg (27.0-33.4); MEAN CORPUSCULAR HGB CONC 33.5 g/dL (32.0-36.0); MEAN CORPUSCULAR VOLUME 91 fl (80-97); MONOCYTES % (AUTO) 5.2 % (3-13); PLATELET COUNT 269 10^3/uL (150-450); RED BLOOD COUNT 4.71 10^6/uL (3.72-5.28); RED CELL DISTRIBUTION WIDTH 14.5 % (11.5-14.0); SEGMENTED NEUTROPHILS % (AUTO) 59.7 % (42-78); TOTAL CELLS COUNTED % (AUTO) 100 %; WHITE BLOOD COUNT 6.9 10^3/uL (4.0-10.5)
[2018-05-26 10:42] LABS: ALANINE AMINOTRANSFERASE 19 U/L (9-52); ALBUMIN 4.3 g/dL (3.5-5.0); ALKALINE PHOSPHATASE 89 U/L (38-126); ANION GAP 14 (5-19); ASPARTATE AMINO TRANSFERASE 19 U/L (14-36); BILIRUBIN,DIRECT 0.2 mg/dL (0.0-0.4); BILIRUBIN,TOTAL 0.7 mg/dL (0.2-1.3); BLOOD UREA NITROGEN 15 mg/dL (7-20); CALCIUM 9.7 mg/dL (8.4-10.2); CARBON DIOXIDE 30 mmol/L (22-30); CHLORIDE 99 mmol/L (98-107); CHOLESTEROL 200.69 mg/dL (0-200); GLUCOSE 109 mg/dL (75-110); POTASSIUM 4.2 mmol/L (3.6-5.0); SODIUM 142.5 mmol/L (137-145); TOTAL PROTEIN 7.2 g/dL (6.3-8.2); TRIGLYCERIDES 204 mg/dL (<150)
[2018-05-26 10:53] LABS: DIRECT LDL 126 mg/dL (<100)
[2018-05-26 10:59] LABS: VLDL CHOLESTEROL 40.8 mg/dL (10-31)
== END ==
LOC: CCC 09:07
DX: E10.8 Type 1 diabetes mellitus with unspecified complications (principal)
CPT/HCPCS: 36415; 80053; 80061; 83036; 85025

== ENCOUNTER 2018-09-04 21:50 | Emergency (ER) | payer OTHER ==
[2018-09-05] MEDS ORDERED: CEPHALEXIN 500 MG CAPSULE PO ONE (00:28)
[2018-09-05] MEDS ORDERED: DOXYCYCLINE HYCLATE 100 MG TABLET PO ONE (00:32)
--- NOTE | 2018-09-05 00:32 | ER Document Report ---
HPI - HPI Time Seen by Provider: 09/05/18 00:00 Pain Level: 1 Notes: Patient is a 57-year-old female who presents to the emergency department complaining of possible insect bite to her right hand. Patient reports this happened last night while she was out walking her dogs, does not know what bit her she states that today it has grown in size and increased in redness. She states she thinks it is cellulitis at this point, states history of having multiple cellulitis episodes. Patient does report some itching to the area, denies any drainage. Patient thinks that she has a history of MRSA but is unsure. - REPRODUCTIVE Reproductive: DENIES: : Past Medical History - General Information source: Patient - Social History Smoking Status: Never Smoker Family History: Reviewed & Not Pertinent Patient has suicidal ideation: No Patient has homicidal ideation: No - Past Medical History Cardiac Medical History: Reports: Hx Hypercholesterolemia, Hx Hypertension Endocrine Medical History: Reports: Hx Hypothyroidism Renal/ Medical History: Denies: Hx Peritoneal Dialysis GI Medical History: Reports: Hx Irritable Bowel - Pt reports hx IBS, declines amoxicillin because of this. Musculoskeletal Medical History: Reports Hx Fibromyalgia, Reports Hx Gout Skin Medical History: Reports Hx Cellulitis Past Surgical History: Reports: Hx Thyroid Surgery - thyroid out - Immunizations Immunizations up to date: Yes Hx Diphtheria, Pertussis, Tetanus Vaccination: Yes - may, Vertical Provider Document - CONSTITUTIONAL Notes: PHYSICAL EXAMINATION: GENERAL: Well-appearing, well-nourished and in no acute distress. HEAD: Atraumatic, normocephalic. EYES: Pupils equal round extraocular movements intact, conjunctiva are normal. ENT: Nares patent NECK: Normal range of motion LUNGS: No respiratory distress Musculoskeletal: Normal range of motion NEUROLOGICAL: Normal speech, normal gait. PSYCH: Normal mood, normal affect. SKIN: Warm, Dry, normal turgor. Circular area of erythema without induration or fluctuance noted to right wrist measuring approximately 4 cm in diameter. - INFECTION CONTROL TRAVEL OUTSIDE OF THE [place] IN LAST 30 DAYS: No Course - Re-evaluation Re-evalutation: Examination is consistent with mild cellulitis. Will place patient on cephalexin and doxycycline as patient is allergic to both sulfa and clindamycin. There is no area of induration or fluctuance. The skin was marked with a surgical marker. Patient encouraged to return to the emergency department if the redness significantly moves outside of the borders of this surgical marking, red streaking develops or she develops a fever. Patient encouraged to take Benadryl 25-50 mg p.o. every 6 hours for any itching. Patient verbalizes understanding and agreement with plan. - Vital Signs Vital signs: Temp Pulse Resp BP Pulse Ox 98.4 F 78 16 131/81 H 100 09/04/18 23:10 09/04/18 23:10 09/04/18 23:10 09/04/18 23:10 09/04/18 23:10 Discharge - Discharge Clinical Impression: Cellulitis Qualifiers: Site of cellulitis: extremity Site of cellulitis of extremity: upper extremity Laterality: right Qualified Code(s): L03.113 - Cellulitis of right upper limb Condition: Stable Disposition: HOME, SELF-CARE Additional Instructions: Cellulitis You have an infection of your skin and underlying soft tissues called cellulitis. This is due to bacteria, which can enter through any break in the skin, or even through an irritated hair follicle. Untreated, cellulitis will usually worsen. Antibiotics are required. Usually, warm packs or warm soaks, and elevation of the infected area are recommended. You should start getting better within 24 to 36 hours. Most infections respond quickly to the right medication. Follow-up care is important, however, to check for abscess (boil) formation, unsuspected foreign body, or resistant infection. If you develop fever, chills, or if the area of infection is becoming rapidly more swollen or painful, call the doctor at once. Please take medications as prescribed. You may also take Benadryl 25-50 mg every 6 hours for itching. Please return to the emergency department if the redness extends past the surgical marking significantly, you develop red streaks from the area, you develop a fever or you develop any other symptoms that are concerning to you. Prescriptions: Cephalexin [Cephalexin 500 MG Tablet] 1 tab PO QID #28 tablet Doxycycline Hyclate 100 mg PO BID #14 capsule Fluconazole [Diflucan] 150 mg PO ONCE PRN #1 tablet PRN Reason: Referrals: [facility] [Primary Care Provider] - Follow up as needed
[2018-09-05 00:53] VITALS: BP 121/89
== END 2018-09-05 00:53 | disposition home or self-care (01) ==
LOC: ER 21:50
DX: L03.113 Cellulitis of right upper limb (principal); E78.00 Pure hypercholesterolemia, unspecified; I10 Essential (primary) hypertension
CPT/HCPCS: 99283

== ENCOUNTER → 2018-09-17 | Outpatient (CLI) | payer OTHER ==
[2018-09-17 11:43] LABS: ABSOLUTE EOSINOPHILS # (AUTO) 0.1 10^3/uL (0.0-0.6); ABSOLUTE LYMPHOCYTES (AUTO) 2.5 10^3/uL (0.5-4.7); ABSOLUTE MONOCYTES (AUTO) 0.4 10^3/uL (0.1-1.4); ABSOLUTE NEUT (AUTO) 3.5 10^3/uL (1.7-8.2); BASOPHILS % (AUTO) 0.7 % (0-2); EOSINOPHILS % (AUTO) 2.3 % (0-6); HEMATOCRIT 40.1 % (36.0-47.0); HEMOGLOBIN 13.7 g/dL (12.0-15.5); LYMPHOCYTES % (AUTO) 37.6 % (13-45); MEAN CORPUSCULAR HEMOGLOBIN 31.1 pg (27.0-33.4); MEAN CORPUSCULAR HGB CONC 34.1 g/dL (32.0-36.0); MEAN CORPUSCULAR VOLUME 91 fl (80-97); MONOCYTES % (AUTO) 6.5 % (3-13); PLATELET COUNT 271 10^3/uL (150-450); RED BLOOD COUNT 4.39 10^6/uL (3.72-5.28); RED CELL DISTRIBUTION WIDTH 14.7 % (11.5-14.0); SEGMENTED NEUTROPHILS % (AUTO) 52.9 % (42-78); TOTAL CELLS COUNTED % (AUTO) 100 %; WHITE BLOOD COUNT 6.6 10^3/uL (4.0-10.5)
[2018-09-17 12:05] LABS: ALANINE AMINOTRANSFERASE 14 U/L (9-52); ALBUMIN 4.3 g/dL (3.5-5.0); ALKALINE PHOSPHATASE 75 U/L (38-126); ANION GAP 11 (5-19); ASPARTATE AMINO TRANSFERASE 24 U/L (14-36); BILIRUBIN,DIRECT 0.2 mg/dL (0.0-0.4); BILIRUBIN,TOTAL 0.7 mg/dL (0.2-1.3); BLOOD UREA NITROGEN 15 mg/dL (7-20); C-REACTIVE PROTEIN 17.2 mg/L (<10.0); CALCIUM 9.3 mg/dL (8.4-10.2); CARBON DIOXIDE 30 mmol/L (22-30); CHLORIDE 99 mmol/L (98-107); CHOLESTEROL 186.26 mg/dL (0-200); GLUCOSE 113 mg/dL (75-110); TOTAL PROTEIN 6.8 g/dL (6.3-8.2); TRIGLYCERIDES 144 mg/dL (<150)
[2018-09-17 12:14] LABS: DIRECT LDL 117 mg/dL (<100)
[2018-09-17 12:41] LABS: ERYTHROCYTE SEDIMENTATION RATE 25 mm/hr (0-30)
== END ==
LOC: CCC 10:34
DX: E78.5 Hyperlipidemia, unspecified (principal); M05.9 Rheumatoid arthritis with rheumatoid factor, unspecified
CPT/HCPCS: 36415; 80053; 80061; 84443; 85025; 85652; 86140

== ENCOUNTER 2018-10-20 19:26 | Emergency (ER) | payer OTHER ==
[2018-10-20 20:05] LABS: APPEARANCE,URINE CLOUDY; BILIRUBIN,URINE NEGATIVE (NEGATIVE); COLOR,URINE YELLOW; GLUCOSE, URINE NEGATIVE (NEGATIVE); KETONES,URINE NEGATIVE (NEGATIVE); LEUKOCYTE ESTERASE,URINE NEGATIVE (NEGATIVE); NITRITE,URINE NEGATIVE (NEGATIVE); PROTEIN,URINE 30 mg/dL (NEGATIVE); URINE SPECIFIC GRAVITY 1.017; UROBILINOGEN,URINE NEGATIVE mg/dL (<2.0)
--- NOTE | 2018-10-20 22:08 | RADIOLOGY REPORT (SQ) ---
CT ABDOMEN PELVIS WITHOUT IV CONTRAST HISTORY: Abdominal pain. Hematuria. COMPARISON: None. TECHNIQUE: CT scan of the abdomen and pelvis without IV contrast. This exam was performed according to our departmental dose-optimization program, which includes automated exposure control, adjustment of the mA and/or kV according to patient size and/or use of iterative reconstruction technique. FINDINGS: The lung bases are clear. No pleural or pericardial effusions. There is no hiatal hernia. The liver, spleen, pancreas, gallbladder, adrenal glands, and kidneys are unremarkable. No urinary stones are seen. The pelvic organs are also unremarkable. No small bowel obstruction. The appendix is normal. There is no evidence of diverticulitis. No intraperitoneal free fluid or free air is identified. The aorta is normal caliber and contains atherosclerotic calcifications. There are bilateral pars defects at L4-L5 with grade 2 anterolisthesis and severe degenerative disc disease at this level. IMPRESSION: No acute abdominal or pelvic pathology.
--- NOTE | 2018-10-20 22:33 | ER Document Report ---
HPI - HPI Time Seen by Provider: 10/20/18 21:13 Pain Level: 0 Notes: Patient is a 58-year-old female who presents emergency department complaining of seeing some blood in her urine today. Patient states that she does not have any discomfort noted aside from urgency. She is still eating and drinking without difficulty. She is having normal bowel movements. She has not had any vaginal discharge, odor, or bleeding. She does have chronic back pain otherwise. No o ther concerns or complaints. Denies any headache, fever, neck pain, URI, sore throat, chest pain, palpitations, syncope, cough, shortness of breath, wheeze, dyspnea, abdominal pain, nausea/vomiting/diarrhea, urinary retention, loss of control of bowel or bladder, numbness/tingling, saddle anesthesia, muscle paralysis/weakness, or rash. - ROS Systems Reviewed and Negative: Yes All other systems reviewed and negative - CONSTITUTIONAL Constitutional: DENIES: Fever - REPRODUCTIVE Reproductive: DENIES: : Past Medical History - Social History Smoking Status: Never Smoker Chew tobacco use (# tins/day): No Frequency of alcohol use: None Drug Abuse: None Family History: Reviewed & Not Pertinent Patient has suicidal ideation: No Patient has homicidal ideation: No - Past Medical History Cardiac Medical History: Reports: Hx Hypercholesterolemia, Hx Hypertension Endocrine Medical History: Reports: Hx Hypothyroidism Renal/ Medical History: Denies: Hx Peritoneal Dialysis GI Medical History: Reports: Hx Irritable Bowel - Pt reports hx IBS, declines amoxicillin because of this. Musculoskeletal Medical History: Reports Hx Fibromyalgia, Reports Hx Gout Skin Medical History: Reports Hx Cellulitis Past Surgical History: Reports: Hx Thyroid Surgery - thyroid out - Immunizations Immunizations up to date: Yes Hx Diphtheria, Pertussis, Tetanus Vaccination: Yes - may, [facility] Provider Document - CONSTITUTIONAL Agree With Documented VS: Yes Notes: PHYSICAL EXAMINATION: GENERAL: Well-appearing, well-nourished and in no acute distress. LUNGS: Breath sounds clear to auscultation bilaterally and equal. No wheezes rales or rhonchi. HEART: Regular rate and rhythm without murmurs, rubs, gallops. ABDOMEN: Soft, nontender, nondistended abdomen. No guarding, no rebound. Normal bowel sounds present. No CVA tenderness bilaterally. Musculoskeletal: FROM to passive/active. Strength 5+/5. Extremities: No cyanosis, clubbing, or edema b/l. Peripheral pulses 2+. Capillary refill less than 3 seconds. NEUROLOGICAL: Normal speech, normal gait. PSYCH: Normal mood, normal affect. SKIN: Warm, Dry, normal turgor, no rashes or lesions noted. - INFECTION CONTROL TRAVEL OUTSIDE OF THE [place] IN LAST 30 DAYS: No Course - Re-evaluation Re-evalutation: 10/20/18 22:30 Patient is an afebrile, well-hydrated, 58-year-old female who presents the emergency department with painless hematuria, unspecified. Vitals are acceptable without significant tachycardia, tachypnea, or hypoxia. PE is otherwise unremarkable. Urinalysis is yellow colored with large blood. Urine culture is pending. CT scan was unremarkable for acute pathology. No further labs or imaging warranted at this time. Patient symptoms began today. She is otherwise nontoxic-appearing and is tolerating p.o. without difficulty. Patient has no abdominal pain or tenderness. Low suspicion/risk for acute appendicitis, bowel obstruction, acute cholecystitis, acute cholangitis, perforated diverticulitis, incarcerated hernia, pancreatitis, perforated ulcer, peritonitis, sepsis, pelvic inflammatory disease, ectopic , tubo- ovarian abscess, ovarian torsion, or other systemic emergent condition at this time. Patient is aware that her condition can change from initial presentation and she needs to monitor symptoms closely and seek medical attention if any acute changes. I thoroughly reviewed with the patient that in the worse case scenario this could be a cancerous etiology and it is important that she follows up with urology. Conservative measures otherwise for symptoms. Recheck with your PCM in 2-3 days. Schedule consult with urology. Return to the ED with any worsening/concerning symptoms otherwise as reviewed in discharge. Patient is in agreement. - Vital Signs Vital signs: Temp Pulse Resp BP Pulse Ox 98.7 F 76 12 134/67 H 92 10/20/18 19:59 10/20/18 19:59 10/20/18 19:59 10/20/18 19:59 10/20/18 19:59 - Laboratory Laboratory results interpreted by me: 10/20/18 19:35 Urine Protein 30 H Urine Blood LARGE H Urine Ascorbic Acid 20 H Discharge - Discharge Clinical Impression: Hematuria Qualifiers: Hematuria type: unspecified type Qualified Code(s): R31.9 - Hematuria, unspecified Condition: Stable Disposition: HOME, SELF-CARE Instructions: Hematuria ([facility]) Additional Instructions: Push fluids (i.e. water) Proper hygenic technique Keep the skin clean Tylenol/ibuprofen as needed F/u with your PCM in 2-3 days for a recheck Schedule an appointment with urology for further evaluation and management Return to the ED with any worsening symptoms and/or development of fever, headache, chest pain, palpitations, syncope, shortness of breath, trouble breathing, abdominal pain, n/v/d, increased blood in stool/urine, loss of control of bowel/bladder, urinary retention, or other worsening symptoms that are concerning to you. Forms: Elevated Blood Pressure Referrals: BRYAN LOUIS MD [Primary Care Provider] - Follow up as needed [facility] [Provider Group] - Follow up as needed [facility] [Provider Group] - Follow up in 3-5 days
[2018-10-20 22:54] VITALS: BP 128/75
== END 2018-10-20 22:55 | disposition home or self-care (01) ==
LOC: ER 19:26
DX: R31.0 Gross hematuria (principal); R39.15 Urgency of urination; I10 Essential (primary) hypertension
CPT/HCPCS: 36415; 74176; 81001; 87086; 87088; 87186; 99284

== ENCOUNTER 2018-11-30 08:36 | Emergency (ER) | payer SELFPAY ==
[2018-11-30 08:42] VITALS: BP 143/75
--- NOTE | 2018-11-30 09:54 | ER Document Report ---
Addendum entered and electronically signed by YUNIOR ESTES NP 11/30/18 09:58: Discharge - Discharge Clinical Impression: Viral upper respiratory illness Otitis media Qualifiers: Otitis media type: unspecified Chronicity: acute Qualified Code(s): H66.90 - Otitis media, unspecified, unspecified ear Condition: Stable Disposition: HOME, SELF-CARE Instructions: Otitis Media ([facility]), Upper Respiratory Illness ([facility]) Additional Instructions: Rapid strep test today was negative. Your physical examination is most consistent with a ear infection on the right side. He will be placed on amoxicillin for that. I will also start you on some prednisone and Tessalon Perles for your upper respiratory infection symptoms. Please take all medications as prescribed. Return to the emergency department with any new or worsening symptoms to include difficulty breathing chest pain or shortness of breath. Prescriptions: Benzonatate [Tessalon Perles 100 mg Capsule] 100 mg PO Q8HP PRN #20 capsule PRN Reason: Amoxicillin 1 tab PO TID #30 tab Fluconazole [Diflucan] 150 mg PO ONCE PRN #1 tablet PRN Reason: Prednisone [Deltasone 20 mg Tablet] 3 tab PO DAILY 5 Days #15 tablet Forms: Return to Work Referrals: BRYAN LOUIS MD [Primary Care Provider] - Follow up as needed Original Note: HPI - HPI Time Seen by Provider: 11/30/18 09:14 Pain Level: 4 Notes: Patient is a 58-year-old female presenting with bilateral heel pain, cough and sore throat that is been going on for 6 days. Patient reports trying [id number]-dra-[id number] remedies at home without relief. 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 Patient denies any history of diabetes, reports history of hypertension. - EENT EENT: REPORTS: Sore Throat, Ear Pain - RESPIRATORY Respiratory: REPORTS: Coughing - REPRODUCTIVE Reproductive: DENIES: : Past Medical History - General Information source: Patient - Social History Smoking Status: Never Smoker Frequency of alcohol use: None Drug Abuse: None Family History: Reviewed & Not Pertinent Patient has suicidal ideation: No Patient has homicidal ideation: No - Past Medical History Cardiac Medical History: Reports: Hx Hypercholesterolemia, Hx Hypertension Endocrine Medical History: Reports: Hx Hypothyroidism Renal/ Medical History: Denies: Hx Peritoneal Dialysis GI Medical History: Reports: Hx Irritable Bowel - Pt reports hx IBS, declines amoxicillin because of this. Musculoskeletal Medical History: Reports Hx Fibromyalgia, Reports Hx Gout Skin Medical History: Reports Hx Cellulitis Past Surgical History: Reports: Hx Thyroid Surgery - thyroid out - Immunizations Immunizations up to date: Yes Hx Diphtheria, Pertussis, Tetanus Vaccination: Yes - may, [facility] Provider Document - CONSTITUTIONAL Notes: PHYSICAL EXAMINATION: GENERAL: Well-appearing, well-nourished and in no acute distress. HEAD: Atraumatic, normocephalic. EYES: Pupils equal round extraocular movements intact, conjunctiva are normal. ENT: Nares patent, oropharynx mildly erythematous, mild tonsillar swelling without exudates, uvula midline, no evidence of peritonsillar abscess. Significant erythema and bulging noted to right tympanic membrane. NECK: Normal range of motion LUNGS: No respiratory distress, lung sounds clear and equal bilaterally. Musculoskeletal: Normal range of motion NEUROLOGICAL: Normal speech, normal gait. PSYCH: Normal mood, normal affect. SKIN: Warm, Dry, normal turgor, no rashes or lesions noted. - INFECTION CONTROL TRAVEL OUTSIDE OF THE [place] IN LAST 30 DAYS: No Course - Re-evaluation Re-evalutation: 11/30/18 09:53 Rapid strep is negative, exam was consistent with otitis media and upper respiratory illness. Patient will be started on amoxicillin. - Vital Signs Vital signs: Temp Pulse Resp BP Pulse Ox 98.1 F 71 16 143/75 H 98 11/30/18 08:41 11/30/18 08:41 11/30/18 08:41 11/30/18 08:41 11/30/18 08:41 Discharge - Discharge Clinical Impression: Viral upper respiratory illness Otitis media Qualifiers: Otitis media type: unspecified Chronicity: acute Qualified Code(s): H66.90 - Otitis media, unspecified, unspecified ear Condition: Stable Disposition: HOME, SELF-CARE Instructions: Upper Respiratory Illness ([facility]), Otitis Media ([facility]) Additional Instructions: Rapid strep test today was negative. Your physical examination is most consistent with a ear infection on the right side. He will be placed on amoxicillin for that. I will also start you on some prednisone and Tessalon Perles for your upper respiratory infection symptoms. Please take all medi cations as prescribed. Return to the emergency department with any new or worsening symptoms to include difficulty breathing chest pain or shortness of breath. Prescriptions: Benzonatate [Tessalon Perles 100 mg Capsule] 100 mg PO Q8HP PRN #20 capsule PRN Reason: Amoxicillin 1 tab PO TID #30 tab Prednisone [Deltasone 20 mg Tablet] 3 tab PO DAILY 5 Days #15 tablet Forms: Return to Work Referrals: BRYAN LOUIS MD [Primary Care Provider] - Follow up as needed
== END 2018-11-30 09:59 | disposition home or self-care (01) ==
LOC: ER 08:36
DX: H66.90 Otitis media, unspecified, unspecified ear (principal); J06.9 Acute upper respiratory infection, unspecified; B34.9 Viral infection, unspecified; H92.09 Otalgia, unspecified ear; E78.00 Pure hypercholesterolemia, unspecified; I10 Essential (primary) hypertension; E03.9 Hypothyroidism, unspecified
CPT/HCPCS: 87070; 87880; 99283

== ENCOUNTER → 2018-12-29 | Outpatient (CLI) | payer OTHER ==
--- NOTE | 2018-12-30 00:56 | XCELERA REPORT ---
[address] [address] Tel: [phone] Fax: [phone] Lower Extremity Arterial Evaluation Name: NATASHA LICONA Age: 58 yrs Gender: Female : 1960 Patient Status: Outpatient Patient Location: [facility] Study Date: 12/29/2018 02:42 PM Procedure: Ankle brachial indicies performed. Reason For Study: PVD Ordering Physician: [facility] Performed By: Halie Snowden Right Side Arterial Evaluation LUCIANO could not be done due to incompressibility. Left Side Arterial Evaluation LUCIANO could not be done due to incompressibility. Interpretation Summary Non compressible LUCIANO's are indicative of arterial disease, vessel wall rigidity. The amount of disease cannot be quantified by this method. An arterial duplex study is recommended as an alternative, non invasive method of getting the desired information. : [facility] > Ben Pereira
== END ==
LOC: SP 13:16
DX: I73.9 Peripheral vascular disease, unspecified (principal)
CPT/HCPCS: 93922

== ENCOUNTER 2019-03-04 18:53 | Emergency (ER) | payer OTHER ==
[2019-03-04 19:05] VITALS: BP 130/78
[2019-03-04] MEDS ORDERED: DEXAMETHASONE SOD PHOS INJ 10 MG/1 ML VIAL IM ONE (20:53)
[2019-03-04] MEDS ORDERED: KETOROLAC TROMETHAMINE 60 MG/2 ML SDV IM ONE (20:53)
--- NOTE | 2019-03-04 20:58 | ER Document Report ---
HPI - HPI Time Seen by Provider: 03/04/19 20:31 Pain Level: 3 Context: Patient is a 58-year-old female who presents emergency department with a chief complaint of right foot pain. Her pain is at her right PIP joint. She states that it feels like her normal gout attack. She is currently on allopurinol. Last time she was given colchicine for an acute gout attack, she had worsening symptoms and said it, "turned me inside out." She said that she does not want the colchicine again. She is currently taking hydrochlorothiazide, spironolactone, tramadol as needed, lorazepam and needed, and levothyroxine. She also has a history of irritable bowel syndrome and Sjogren's. Patient states that she has been under a lot of stress, which she thinks is causing her gout flareup. She states that she has been eating food she is supposed to be eating and staying away from the foods she is not supposed to eat for gout. Patient is able to walk. Her symptoms started today. - CONSTITUTIONAL Constitutional: DENIES: Fever, Chills - RESPIRATORY Respiratory: DENIES: Trouble Breathing, Coughing - GASTROINTESTINAL Gastrointestinal: DENIES: Abdominal Pain - REPRODUCTIVE Reproductive: DENIES: : - MUSCULOSKELETAL Musculoskeletal: REPORTS: Extremity pain - Right medial foot - DERM Skin Color: Normal Notes: Redness noted to right first medial PIP joint. Past Medical History - Social History Smoking Status: Former Smoker Chew tobacco use (# tins/day): No Frequency of alcohol use: None Drug Abuse: None Family History: Reviewed & Not Pertinent Patient has suicidal ideation: No Patient has homicidal ideation: No - Past Medical History Cardiac Medical History: Reports: Hx Hypercholesterolemia, Hx Hypertension Endocrine Medical History: Reports: Hx Hypothyroidism Renal/ Medical History: Denies: Hx Peritoneal Dialysis GI Medical History: Reports: Hx Irritable Bowel - Pt reports hx IBS, declines amoxicillin because of this. Musculoskeletal Medical History: Reports Hx Fibromyalgia, Reports Hx Gout Skin Medical History: Reports Hx Cellulitis Past Surgical History: Reports: Hx Thyroid Surgery - thyroid out - Immunizations Immunizations up to date: Yes Hx Diphtheria, Pertussis, Tetanus Vaccination: Yes - may, [facility] Provider Document - CONSTITUTIONAL Agree With Documented VS: Yes Exam Limitations: No Limitations General Appearance: No Apparent Distress - INFECTION CONTROL TRAVEL OUTSIDE OF THE [place] IN LAST 30 DAYS: No - HEENT HEENT: Atraumatic, Normocephalic, PERRLA - RESPIRATORY Respiratory: Breath Sounds Normal, No Respiratory Distress - CARDIOVASCULAR Cardiovascular: Regular Rate, Regular Rhythm Pulses: Normal: Radial - MUSCULOSKELETAL/EXTREMETIES Musculoskeletal/Extremeties: FROM, Tender - Right medial toe at PIP joint - NEURO Level of Consciousness: Awake, Alert, Appropriate Motor/Sensory: No Motor Deficit, No Sensory Deficit - DERM Integumentary: Warm, Dry, No Rash Course - Re-evaluation Re-evalutation: 03/04/19 20:[address] Arias about this case and asked him what he recommends for gout since the patient is refusing to have colchicine. He is recommending Toradol IM and Decadron. I discussed this with the patient and she is in agreement with this plan. Patient is also requesting uric acid levels. I told her that she can have them drawn and request records at her primary care office. I have a very low suspicion for a septic joint. She will follow-up with her [facility] care provider in regards to this visit. Follow-up precautions were given. Verbal discharge instructions were given to the patient. They verbalized understanding. They are stable for discharge. - Vital Signs Vital signs: Temp Pulse Resp BP Pulse Ox 98.3 F 97 18 130/78 H 97 03/04/19 19:04 03/04/19 19:04 03/04/19 19:04 03/04/19 19:04 03/04/19 19:04 Discharge - Discharge Clinical Impression: Gout flare Qualifiers: Gout site: foot Gout etiology: unspecified cause Laterality: right Qualified Code(s): M10.9 - Gout, unspecified Condition: Stable Disposition: HOME, SELF-CARE Additional Instructions: You were seen today for gout. You were treated with Decadron and Toradol here in the emergency department. Follow-up with your primary care doctor in the next 3-5 days. Return if you have fever greater than 100.4F, worsening pain, become unable to move the knee, or have any other symptoms that are worrisome to you. Referrals: [facility] [Primary Care Provider] - Follow up in 3-5 days
== END 2019-03-04 21:26 | disposition home or self-care (01) ==
LOC: ER 18:53
DX: M10.9 Gout, unspecified (principal); M79.671 Pain in right foot; I10 Essential (primary) hypertension; E89.0 Postprocedural hypothyroidism; Z79.899 Other long term (current) drug therapy; Z87.891 Personal history of nicotine dependence
CPT/HCPCS: 36415; 84550; J1885; J1100; 96372; 99283

== ENCOUNTER → 2019-03-16 | Outpatient (CLI) | payer OTHER ==
[2019-03-16 13:04] LABS: ALBUMIN 4.3 g/dL (3.5-5.0); ALKALINE PHOSPHATASE 91 U/L (38-126); ANION GAP 11 (5-19); ASPARTATE AMINO TRANSFERASE 21 U/L (14-36); BILIRUBIN,DIRECT 0.1 mg/dL (0.0-0.4); BILIRUBIN,TOTAL 0.7 mg/dL (0.2-1.3); BLOOD UREA NITROGEN 15 mg/dL (7-20); CALCIUM 9.4 mg/dL (8.4-10.2); CARBON DIOXIDE 31 mmol/L (22-30); CHLORIDE 96 mmol/L (98-107); GLUCOSE 116 mg/dL (75-110); POTASSIUM 3.6 mmol/L (3.6-5.0); TOTAL PROTEIN 6.8 g/dL (6.3-8.2); URIC ACID 6.1 mg/dL (2.5-7.5)
[2019-03-16 13:07] LABS: ABSOLUTE BASOPHILS # (AUTO) 0.1 10^3/uL (0.0-0.2); ABSOLUTE EOSINOPHILS # (AUTO) 0.1 10^3/uL (0.0-0.6); ABSOLUTE LYMPHOCYTES (AUTO) 2.2 10^3/uL (0.5-4.7); ABSOLUTE MONOCYTES (AUTO) 0.5 10^3/uL (0.1-1.4); ABSOLUTE NEUT (AUTO) 5.6 10^3/uL (1.7-8.2); BASOPHILS % (AUTO) 0.7 % (0-2); EOSINOPHILS % (AUTO) 1.3 % (0-6); HEMATOCRIT 41.5 % (36.0-47.0); HEMOGLOBIN 13.7 g/dL (12.0-15.5); LYMPHOCYTES % (AUTO) 26.2 % (13-45); MEAN CORPUSCULAR HEMOGLOBIN 30.4 pg (27.0-33.4); MEAN CORPUSCULAR HGB CONC 33.1 g/dL (32.0-36.0); MEAN CORPUSCULAR VOLUME 92 fl (80-97); MONOCYTES % (AUTO) 6.3 % (3-13); PLATELET COUNT 248 10^3/uL (150-450); RED BLOOD COUNT 4.52 10^6/uL (3.72-5.28); RED CELL DISTRIBUTION WIDTH 14.4 % (11.5-14.0); SEGMENTED NEUTROPHILS % (AUTO) 65.5 % (42-78); TOTAL CELLS COUNTED % (AUTO) 100 %; WHITE BLOOD COUNT 8.6 10^3/uL (4.0-10.5)
[2019-03-16 13:20] LABS: FREE T3 4.1 pg/mL (2.77-5.27); FREE T4 (FREE THYROXINE) 1.81 ng/dL (0.78-2.19)
[2019-03-16 13:34] LABS: THYROID STIMULATING HORMONE 0.39 uIU/mL (0.47-4.68)
[2019-03-16 13:48] LABS: ERYTHROCYTE SEDIMENTATION RATE 30 mm/hr (0-30)
== END ==
LOC: CCC 12:06
DX: Z00.00 Encounter for general adult medical examination without abnormal findings (principal); L63.9 Alopecia areata, unspecified; C73 Malignant neoplasm of thyroid gland; G62.9 Polyneuropathy, unspecified; M06.9 Rheumatoid arthritis, unspecified
CPT/HCPCS: 36415; 80053; 82607; 82746; 83036; 83735; 84439; 84443; 84481; 84550; 85025; 85652

== ENCOUNTER → 2019-04-04 | Outpatient (CLI) | payer OTHER ==
--- NOTE | 2019-04-04 15:52 | RADIOLOGY REPORT (SQ) ---
EXAM DESCRIPTION: CHEST PA/LATERAL COMPLETED DATE/TIME: 04/04/2019 3:35 pm REASON FOR STUDY: PRIMARY RESPIRATORY TUBERCULOSIS COMPARISON: 09/07/2015 EXAM PARAMETERS: NUMBER OF VIEWS: two views TECHNIQUE: Digital Frontal and Lateral radiographic views of the chest acquired. RADIATION DOSE: NA LIMITATIONS: none FINDINGS: LUNGS AND PLEURA: No opacities, masses or pneumothorax. No pleural effusion. MEDIASTINUM AND HILAR STRUCTURES: No masses or contour abnormalities. HEART AND VASCULAR STRUCTURES: Heart normal size. No evidence for failure. BONES: No acute findings. HARDWARE: None in the chest. OTHER: No other significant finding. IMPRESSION: NO SIGNIFICANT RADIOGRAPHIC FINDING IN THE CHEST. TECHNICAL DOCUMENTATION: JOB ID: [id number] [employer]- All Rights Reserved Reading location - IP/workstation name: [email or web address]
== END ==
LOC: OD 15:09
DX: A15.7 Primary respiratory tuberculosis (principal)
CPT/HCPCS: 36415; 71046; 86480

== ENCOUNTER → 2019-09-23 | Outpatient (CLI) | payer OTHER ==
--- NOTE | 2019-09-23 11:10 | WOMENS IMAGING REPORT ---
EXAM DESCRIPTION: PINK WARRIOR BILATERAL SCREEN COMPLETED DATE/TIME: 09/23/2019 8:45 am REASON FOR STUDY: PINK PINK PINK Z12.31 SCREENING MAMMO PINK PINK PINK Z12.31 ENCNTR SCREEN MAMMOGR AM FOR MALIGNANT NEOPLASM OF ARIAN COMPARISON: Multiple since 2011 EXAM PARAMETERS: Standard craniocaudal and mediolateral oblique views of each breast recorded using digital acquisition. Read with the assistance of CAD. .[facility] - [place] Cut Off Machine Operator Version 9.2 LIMITATIONS: None. FINDINGS: No suspicious masses, suspicious calcifications or architectural distortion. No areas of c oncern. IMPRESSION: Negative MAMMOGRAM. BIRADS 1 BREAST DENSITY: c. The breasts are heterogeneously dense, which may obscure small masses. BIRAD: ASSESSMENT: 1 NEGATIVE RECOMMENDATION: ROUTINE SCREENING Please continue yearly bilateral screening mammography/tomosynthesis in August 2020 COMMENT: The patient has been notified of the results by letter per SA requirements. Additional no tification policies are in place for contacting patient with suspicious or incomplete findings. Quality ID #[id number]: The [employer] recommends an annual screening mammogram for women aged 40 years or over. This facility utilizes a reminder system to ensure that all patients receive reminder letters, and/or direct phone calls for appointments. This includes reminders for routine scr eening mammograms, diagnostic mammograms, or other Breast Imaging Interventions when appropriate. Th is patient will be placed in the appropriate reminder system. TECHNICAL DOCUMENTATION: FINDING NUMBER: (1) ASSESSMENT: (1) JOB ID: [id number] [employer]- All Rights Reserved Reading location - IP/workstation name: [email or web address]
== END ==
LOC: WI 08:15
PROVIDERS: ATTEND Family Medicine
DX: Z12.31 Encounter for screening mammogram for malignant neoplasm of breast (principal)
CPT/HCPCS: 77067

== ENCOUNTER 2019-12-24 19:19 | Emergency (ER) | payer SELFPAY ==
[2019-12-24 19:25] VITALS: BP 145/86
--- NOTE | 2019-12-24 19:54 | ER Document Report ---
ED ENT - General Chief Complaint: Ear Pain Stated Complaint: EAR PAIN AND SORE THROAT Time Seen by Provider: 12/24/19 19:40 Primary Care Provider: RAJI LOUIS MD [Primary Care Provider] - Follow up as needed Mode of Arrival: Ambulatory Information source: Patient Notes: 59 year-old female presented to ED for pain in the right ear. She states it started hurting this morning about 1130 while she was at [employer]. She states she just taken her extra strength Tylenol for psoriatic arthritis at that time. She states she did not see a doctor today for the pain she waited till the night and because she thought it would go away. She states her son-in-law is a [employer] her daughter tried to look in her ear with some type of pen lighting from her computer and she scratched her ear just before coming into the ED. TRAVEL OUTSIDE OF THE [place] IN LAST 30 DAYS: No - HPI Patient complains to provider of: Ear problem Onset: This morning Onset/Duration: Intermittent Quality of pain: Sharp, Other - Hellen Severity: Moderate Pain Level: 3 Location of pain: Ears Associated symptoms: Ear pain Similar symptoms previously: Yes Recently seen / treated by doctor: Yes - Related Data Allergies/Adverse Reactions: clindamycin Allergy (Verified 03/04/19 18:56) epinephrine Allergy (Verified 03/04/19 18:56) Sulfa (Sulfonamide Antibiotics) Allergy (Verified 03/04/19 18:56) Past Medical History - General Information source: Patient - Social History Smoking Status: Never Smoker Frequency of alcohol use: None Drug Abuse: None Lives with: Family Family History: Reviewed & Not Pertinent Patient has homicidal ideation: No - Past Medical History Cardiac Medical History: Reports: Hx Hypercholesterolemia, Hx Hypertension Pulmonary Medical History: Reports: None EENT Medical History: Reports: None Neurological Medical History: Reports: None Endocrine Medical History: Reports: Hx Hypothyroidism Renal/ Medical History: Reports: None Malignancy Medical History: Reports: Other - Avoid cancer GI Medical History: Reports: Hx Irritable Bowel - Pt reports hx IBS, declines amoxicillin because of this. Musculoskeletal Medical History: Reports Hx Arthritis - Psoriatic arthritis, Reports Hx Fibromyalgia, Reports Hx Gout, Reports Other - Sjogren's Skin Medical History: Reports Hx Cellulitis Psychiatric Medical History: Reports: None Traumatic Medical History: Reports: None Infectious Medical History: Reports: None Surgical Hx: Negative Past Surgical History: Reports: None, Hx Thyroid Surgery - thyroid out - Immunizations Immunizations up to date: Yes Hx Diphtheria, Pertussis, Tetanus Vaccination: Yes - may, Review of Systems - Review of Systems Constitutional: No symptoms reported EENT: Ear pain, Sinus discharge Cardiovascular: No symptoms reported Respiratory: No symptoms reported Gastrointestinal: No symptoms reported Genitourinary: No symptoms reported Female Genitourinary: No symptoms reported Musculoskeletal: No symptoms reported Skin: No symptoms reported Hematologic/Lymphatic: No symptoms reported Neurological/Psychological: No symptoms reported Physical Exam - Vital signs Vitals: Temp Pulse Resp BP Pulse Ox 98.3 F 91 20 145/86 H 98 12/24/19 19:24 12/24/19 19:24 12/24/19 19:24 12/24/19 19:24 12/24/19 19:24 Interpretation: Normal - General General appearance: Appears well, Alert - HEENT Head: Normocephalic, Atraumatic Eyes: Normal Pupils: PERRL Ears: Normal External canal: Other Tympanic membrane: Normal Sinus: Normal Nasal: Swelling Mouth/Lips: Normal Mucous membranes: Normal Pharynx: Normal Neck: Normal - Respiratory Respiratory status: No respiratory distress Chest status: Nontender Breath sounds: Normal Chest palpation: Normal - Cardiovascular Rhythm: Regular Heart sounds: Normal auscultation Murmur: No - Abdominal Inspection: Normal Distension: No distension Bowel sounds: Normal Tenderness: Nontender Organomegaly: No organomegaly - Back Back: Normal, Nontender - Extremities General upper extremity: Normal inspection, Nontender, Normal color, Normal ROM, Normal temperature General lower extremity: Normal inspection, Nontender, Normal color, Normal ROM, Normal temperature, Normal weight bearing. No: Vesna's sign - Neurological Neuro grossly intact: Yes Cognition: Normal Orientation: AAOx4 Roxana Coma Scale Eye Opening: Spontaneous Draper Coma Scale Verbal: Oriented Roxana Coma Scale Motor: Obeys Commands Roxana Coma Scale Total: 15 Speech: Normal Motor strength normal: LUE, RUE, LLE, RLE Sensory: Normal - Psychological Associated symptoms: Normal affect, Normal mood - Skin Skin Temperature: Warm Skin Moisture: Dry Skin Color: Normal Course - Vital Signs Vital signs: Temp Pulse Resp BP Pulse Ox 98.3 F 91 20 145/86 H 98 12/24/19 19:34 12/24/19 19:24 12/24/19 19:24 12/24/19 19:24 12/24/19 19:24 Discharge - Discharge Clinical Impression: Right ear pain Condition: Stable Disposition: HOME, SELF-CARE Additional Instructions: You were seen today for right ear pain. No otitis media or otitis externa. There is a small scratch to the outer wall of the ear canal where she states her family member stuck something in her ear to look in her ear. This is new and not what was causing the ear pain. You do have some mild swelling to the nasal passage and sometimes when you have sinus pressure it can cause ear pain. There is no infection in your ear With your Sjogren's sometimes your parotid gland can cause your ear to hurt, if this is what is causing your ear pain tries sucking on very sour lemon drops I am going to give you a name and number for ears nose and throat if your ear continues to hurt. You can also follow-up with your primary care doctor. FOLLOW-UP CARE: If you have been referred to a physician for follow-up care, call the physicians office for an appointment as you were instructed or within the next two days. If you experience worsening or a significant change in your symptoms, notify the physician immediately or return to the Emergency Department at any time for re-evaluation. Forms: Elevated Blood Pressure Referrals: RAJI LOUIS MD [Primary Care Provider] - Follow up as needed
== END 2019-12-24 20:01 | disposition home or self-care (01) ==
LOC: ER 19:19
DX: H92.01 Otalgia, right ear (principal); I10 Essential (primary) hypertension; L40.50 Arthropathic psoriasis, unspecified; Z79.899 Other long term (current) drug therapy; Z88.1 Allergy status to other antibiotic agents; Z88.8 Allergy status to other drugs, medicaments and biological substances; Z88.2 Allergy status to sulfonamides
CPT/HCPCS: 99282

== ENCOUNTER → 2020-02-23 | Outpatient (CLI) | payer OTHER ==
--- NOTE | 2020-02-23 14:49 | RADIOLOGY REPORT (SQ) ---
EXAM DESCRIPTION: MRI HEAD COMBO IMAGES COMPLETED DATE/TIME: 02/23/2020 1:14 pm REASON FOR STUDY: H55.09 OTHER FORMS OF [place]STAGMUS H55.09 OTHER FORMS OF [place]STAG[place] COMPARISON: None. TECHNIQUE: Multiplanar imaging includes noncontrasted T1, T2, FLAIR, and Diffusion with ADC map seq uences. Thin sections through the orbits. Contrast enhanced T1 images. Images stored on PACS. CONTRAST TYPE AND DOSE: 20 mL Prohance. RENAL FUNCTION: Not indicated. ACR Type II contrast agent associated with few, if any, unconfounded cases of NSF LIMITATIONS: None. FINDINGS: ANATOMY: No anomalies. Normal vascular flow voids. Pituitary fossa normal. CSF SPACES: Normal size and contour. No hemorrhage. CEREBRUM: A few high-signal intensity lesions scattered throughout the white matter on FLAIR imaging with distribution suggesting chronic microvascular ischemic change. Sulci and gyri normal in size and contour. No evidence of hemorrhage, mass or extraaxial fluid collection. No enhancing lesions. POSTERIOR FOSSA: No signal alteration. No hemorrhage. No edema, masses or mass effect. Internal audit ory canals, cerebello-pontine angles, mastoids normal. DIFFUSION: Negative for acute or subacute infarction. ORBITS: No masses. Globes normal. PARANASAL SINUSES: No fluid levels. Mucosa normal. OTHER: No other significant finding. IMPRESSION: No acute findings. Normal orbits. EVIDENCE OF ACUTE STROKE: NO. TECHNICAL DOCUMENTATION: JOB ID: [id number] 2010 [employer]- All Rights Reserved Reading location - IP/workstation name: [email or web address]
== END ==
LOC: RAD 11:46
PROVIDERS: ATTEND Ophthalmology
DX: H55.09 Other forms of nystagmus (principal)
CPT/HCPCS: 82565; 70553; A9576

== ENCOUNTER → 2020-06-08 | Outpatient (CLI) | payer OTHER | LOC: OD 14:25 | PROVIDERS: ATTEND Internal Medicine Endocrinology, Diabetes & Metabolism | DX: Z08 Encounter for follow-up examination after completed treatment for malignant neoplasm (principal); Z85.850 Personal history of malignant neoplasm of thyroid | CPT/HCPCS: 36415 ==